=== PATIENT | female | born 1935 | race Caucasian/White ===

== ENCOUNTER → 2016-04-17 | Outpatient (CLI) | payer OTHER, MEDICARE ==
[~2016-04-17] MED LIST: ASPI81TA28 PO; ATRINS INH; BRVIN INH; CHOL100010 PO; FERR325T51 PO; FLUT110A INH; LANS30TA3 PO; LOSA100T2 PO; LPT40 PO; MULT-506 PO; OXGN; PLV75 PO; PRD10 PO; TIMO0.2527 OPL; TPRSR/25 PO; XNX25 PO; XPNINS1255 INH
--- NOTE | 2016-04-17 17:08 | MAMMOGRAPHY REPORT ---
BILATERAL DIGITAL SCREENING MAMMOGRAM WITH CAD: 04/17/2016 CLINICAL HISTORY: Routine screening. Patient has no complaints. TECHNIQUE: Bilateral CC and MLO views were obtained. Current study was also evaluated with a Comput er Aided Detection (CAD) system. COMPARISON: Comparison is made to exams dated: 03/28/2015 mammogram, 03/18/2014 mammogram, 02/19/2013 mammogram, 02/18/2012 mammogram, 02/12/2011 mammogram, and 02/07/2010 mammogram - [facility] [address] BREAST COMPOSITION: There are scattered areas of fibroglandular density in both breasts. FINDINGS: There are benign-appearing round and coarse microcalcifications bilaterally. A stable harinder -shaped metallic biopsy marker within the right breast. A pacemaker projects over the far superior left breast on the MLO view. No suspicious mass, architectural distortion or cluster of microcalcif ications is seen. IMPRESSION: ACR BI-RADS CATEGORY 1: NEGATIVE There is no mammographic evidence of malignancy. A 1 year screening mammogram is recommended. The p atient will receive written notification of the results. Approximately 10% of breast cancers are not detected with mammography. A negative mammographic repor t should not delay biopsy if a clinically suggestive mass is present. Nohelia Espinoza M.D. ay/:04/17/2016 15:22:52 [place] Operator: Samantha BANUELOS)(Sarah), [facility] letter sent: Normal 1/2 BI-RADS Code: ACR BI-RADS Category 1: Negative
== END | disposition home or self-care (01) ==
LOC: C.MAMM 13:17
PROVIDERS: ATTEND Family Medicine
DX: Z12.31 Encounter for screening mammogram for malignant neoplasm of breast (principal)

== ENCOUNTER → 2017-08-12 | Outpatient (CLI) | payer OTHER, MEDICARE ==
--- NOTE | 2017-08-13 14:22 | MAMMOGRAPHY REPORT ---
BILATERAL DIGITAL SCREENING MAMMOGRAM TOMOSYNTHESIS WITH CAD: 08/12/2017 CLINICAL HISTORY: Routine screening. Patient has no complaints. TECHNIQUE: Breast tomosynthesis in addition to standard 2D mammography was performed. Current study was also evaluated with a Computer Aided Detection (CAD) system. COMPARISON: Comparison is made to exams dated: 04/17/2016 mammogram, 03/28/2015 mammogram, 03/18/2014 m ammogram, 02/19/2013 mammogram, 02/18/2012 mammogram, and 02/12/2011 mammogram - [facility]. BREAST COMPOSITION: There are scattered areas of fibroglandular density in both breasts. FINDINGS: A metallic cardiac device projects over the superior left breast and pectoralis muscle on t he MLO view. There is a stable harinder-shaped biopsy marker clip in the lower inner right breast. No ne w suspicious mass, architectural distortion or cluster of microcalcifications is seen. IMPRESSION: ACR BI-RADS CATEGORY 1: NEGATIVE There is no mammographic evidence of malignancy. A 1 year screening mammogram is recommended. The pa tient will receive written notification of the results. Approximately 10% of breast cancers are not detected with mammography. A negative mammographic report should not delay biopsy if a clinically suggestive mass is present. Nohelia Espinoza M.D. ay/:08/12/2017 19:16:23 [place] [employer]man: Samantha CHASE(Aziza)(Sarah), [facility] letter sent: Normal 1/2 BI-RADS Code: ACR BI-RADS Category 1: Negative
== END | disposition home or self-care (01) ==
LOC: C.MAMM 11:11
PROVIDERS: ATTEND Family Medicine
DX: Z12.31 Encounter for screening mammogram for malignant neoplasm of breast (principal)